=== PATIENT | female | born 1980 | race Caucasian/White ===

== ENCOUNTER 2023-11-25 15:48 | Emergency (ER) | payer OTHER ==
[~2023-11-25] VITALS: Ht 149.9 cm; Wt 70.8 kg
[2023-11-25 16:07] VITALS: BP_SYST 148; PULSE 86; RESP 17; TEMP 97.3; O2SAT 99
[2023-11-25] MEDS: KETOROLAC TROMETHAMINE 60 MG/2 ML VIAL IM ONE (16:28)
[2023-11-25 16:43] VITALS: BP_SYST 148; PULSE 86; RESP 17; TEMP 97.3; O2SAT 99
[2023-11-25] MEDS: ONDANSETRON 4 MG ODT TAB PO ONE (17:02)
[2023-11-25] MEDS: MORPHINE 4 MG INJ. 4 MG/ML VIAL IM ONE (17:03)
[2023-11-25] MEDS ORDERED: GABA-534 PO (17:14)
== END 2023-11-25 17:22 | disposition home or self-care (01) ==
LOC: SED 15:48
DX: G57.83 Other specified mononeuropathies of bilateral lower limbs (principal); Z90.49 Acquired absence of other specified parts of digestive tract; Z79.899 Other long term (current) drug therapy
CPT/HCPCS: 99284; 96372; Q0162; J1885; J2270